=== PATIENT | male | born 1970 | race Caucasian/White ===

== ENCOUNTER 2016-06-26 20:53 | Emergency (ER) | payer SELFPAY | END 2016-06-26 21:09 | disposition E | DRG 298 | LOC: ED 20:53 | PROC: 0T9B70Z Drainage of Bladder with Drainage Device, Via Natural or Artificial Opening (ICD-10-PCS; principal; 2016-06-26) | PROC: 0BH17EZ Insertion of Endotracheal Airway into Trachea, Via Natural or Artificial Opening (ICD-10-PCS; 2016-06-26) | DX: I46.9 Cardiac arrest, cause unspecified (principal) ==